=== PATIENT | female | born 1960 | race Caucasian/White ===

== ENCOUNTER 2017-09-03 10:14 | Emergency (ER) | payer SELFPAY ==
[~2017-09-03] VITALS: Ht 172.7 cm; Wt 108.0 kg
--- NOTE | 2017-09-03 10:14 | NUR ---
BBRA FROM DENTAL OFFICE FOR AMS AFTER GETTING 2MG OF VERSED IV FOR A DENTAL PROCEDURE, [id number]. PT IS NOW MORE AWAKE UPON ARRIVAL BUT STILL APPEARS DROWSY, ANSWERING QUESTIONS. PLACED ON CONT MONITORING, KEPT WARM AND COMFORTABLE. PENDING ER MD EVALUATION.
--- NOTE | 2017-09-03 10:26 | NUR ---
DR HODGSON AT BEDSIDE FOR EVALUATION
[2017-09-03] MEDS ORDERED: IV NS 0.9% 1,000 ML BAG IV ONE (10:30)
[2017-09-03 10:43] LABS: BASOPHILS # (AUTO) 0.3 /CMM (0.0-0.2); BASOPHILS % (AUTO) 3.9 % (0.0-2.0); EOSINOPHILS # (AUTO) 0.2 /CMM (0.0-0.7); EOSINOPHILS % (AUTO) 2.1 % (0.0-6.0); HEMATOCRIT 42 % (33-45); HEMOGLOBIN 13.9 g/dL (11.5-14.8); LYMPHOCYTES # (AUTO) 2.6 /CMM (0.8-4.8); LYMPHOCYTES % (AUTO) 32.2 % (20.0-44.0); MEAN CORPUSCULAR HEMOGLOBIN 27 PG (26.0-33.0); MEAN CORPUSCULAR HGB CONC 33 g/dl (31.0-36.0); MEAN CORPUSCULAR VOLUME 82 fL (82-100); MONOCYTES # (AUTO) 0.4 /CMM (0.1-1.30); MONOCYTES % (AUTO) 4.9 % (2.0-12.0); NEUTROPHILS # (AUTO) 4.5 /CMM (1.8-8.9); NEUTROPHILS % (AUTO) 56.9 % (43.0-81.0); PLATELET COUNT (AUTO) 278 /CMM (150-450); RDW COEFFICIENT OF VARIATION 12.1 (11.5-15.0); RED BLOOD CELL COUNT(AUTO) 5.13 MIL/uL (4.0-5.2)
[2017-09-03 10:54] LABS: CALCIUM, SERUM 8.4 mg/dL (8.5-10.1); CREATININE 0.6 mg/dL (0.6-1.3); POTASSIUM 3.8 mmol/L (3.5-5.1)
[2017-09-03 10:56] LABS: INR 0.9 (0.87-1.13)
--- NOTE | 2017-09-03 10:58 | NUR ---
BARKEEPER AT BEDSIDE
[2017-09-03 10:59] LABS: ALBUMIN 3.6 g/dL (3.4-5.0); BILIRUBIN,TOTAL 0.3 mg/dL (0.2-1.0); TOTAL PROTEIN, SERUM 7.7 g/dL (6.4-8.2)
[2017-09-03 11:01] LABS: TROPONIN I 0.017 ng/mL (0.00-0.056)
--- NOTE | 2017-09-03 12:02 | NUR ---
IV removed. Catheter intact and site benign. Pressure and 4x4 applied to site. No bleeding noted.
--- NOTE | 2017-09-03 12:02 | NUR ---
Patient discharged to home in stable condition. Written and verbal after care instructions given. Patient verbalizes understanding of instruction.
[2017-09-03 12:03] VITALS: BP 147/94
--- NOTE | 2017-09-03 12:20 | NUR ---
VERBAL ORDER DR SAI CRAWLEY 4MG SL X1
[2017-09-03] MEDS ORDERED: ONDANSETRON 4 MG TAB.RAPDIS ONE (12:21)
== END 2017-09-03 12:26 | disposition home or self-care (01) ==
LOC: ER 10:16
DX: T42.4X5A Adverse effect of benzodiazepines, initial encounter (principal); Y92.89 Other specified places as the place of occurrence of the external cause
CPT/HCPCS: 36415; 71045-TC; 80048-TC; 80076-TC; 84484-TC; 85025-TC; 85730-TC; A4606; J7030; Q0162; Z7610